=== PATIENT | female | born 1955 | race Caucasian/White ===

== ENCOUNTER → 2018-11-16 | Day surgery (SDC) | payer BC, OTHER ==
--- NOTE | 2018-11-17 16:43 | PATH ---
Surgical Pathology Report Patient Name: GUY DOUGLAS [facility]. Rec. #: [id number] /Age/Gender: 1955 (Age: 63) / F Account: [id number] Location: [facility] Taken: 11/16/2018 Received: 11/16/2018 Reported: 11/17/2018 Physicians: Ash Fajardo M.D. Specimen(s) Received LEFT BREAST SPECIMEN Clinical History Nonpalpable lesion Mammographic findings: Suspicious Final Diagnosis BREAST, LEFT, WITH DENSITY, STEREOTACTIC CORE BIOPSY: BENIGN BREAST TISSUE WITH FIBROADENOMATOID CHANGES INCLUDING STROMAL FIBROSIS, MICROCYSTS, COLUMNAR CELL CHANGES, USUAL DUCTAL HYPERPLASIA, MILD PERIDUCTAL CHRONIC INFLAMMATION, AND RARE MICROCALCIFICATIONS. Electronically Signed Yu Huizar M.D. Gross Description Received in formalin labeled "left breast with density," are 15 lares-yellow, cylindrical portions of fibroadipose tissue ranging from 0.6-2.7 cm in length and averaging 0.4 cm in diameter. The specimens are submitted in toto in 2 cassettes. Time to formalin fixation: 5 minutes Total formalin fixation time: Approximately 6 hours. /11/16/2018 [facility]/16/2018
== END | disposition home or self-care (01) ==
LOC: FMAMMOTONE 11:19
PROVIDERS: ATTEND Family Medicine
PROC: 0HBU3ZX Excision of Left Breast, Percutaneous Approach, Diagnostic (ICD-10-PCS; principal; 2018-11-16)
DX: N60.12 Diffuse cystic mastopathy of left breast (principal); N60.22 Fibroadenosis of left breast; N60.32 Fibrosclerosis of left breast; N60.82 Other benign mammary dysplasias of left breast; N64.89 Other specified disorders of breast; R92.8 Other abnormal and inconclusive findings on diagnostic imaging of breast
CPT/HCPCS: 19081; 88305-TC; A4648